=== PATIENT | male | born 1970 | race Caucasian/White ===

== ENCOUNTER 2016-09-15 22:55 | Emergency (ER) ==
[2016-09-15 23:00] VITALS: TEMP 99.1; BMI 30.6
--- NOTE | 2016-09-15 23:04 | ED.PDOC ---
General ED Provider: Dr. CJ SHORT Chief Complaint: Hypertension Stated Complaint: Patient is a 46 year of male how has a history of Hypertension and off and On chest pain for two years. Today he had elevated blood pressure up to 190s . He took a clonidine which he is supposed to take with blood pressure more than 160 . He was experiencing similar chest pain and some numbness on the right arm. Time Seen by Physician: 23:04 Mode of Arrival: Walk-In Information Source: Patient Nursing and Triage Documentation Reviewed and Agree: Yes Review of Systems - Review Of Systems Constitutional: Reports: No symptoms Eyes: Reports: No symptoms Ears, Nose, Mouth, Throat: Reports: No symptoms Respiratory: Reports: No symptoms Cardiac: Reports: Chest pain GI: Reports: No symptoms : Reports: No symptoms Musculoskeletal: Reports: Neck pain Skin: Reports: No symptoms Neurological: Reports: Anxiety, Numbness (Right arm) Endocrine: Reports: No symptoms Hematologic/Lymphatic: Reports: No symptoms All Other Systems: Reviewed and Negative Past Medical History - Past Medical History Previously Healthy: Yes Endocrine: Reports: None Cardiovascular: Reports: Hypertension Respiratory: Reports: None Hematological: Reports: None Gastrointestinal: Reports: None Genitourinary: Reports: None Neuro/Psych: Reports: None Musculoskeletal: Reports: None Cancer: Reports: None - Surgical History General Surgical History: Reports: None - Family History Family History: Reports: None - Social History Smoking Status: Current every day smoker, Heavy tobacco smoker Hx Substance Use: Yes (smokes marijuana) Alcohol Screening: Occasionally Physical Exam - Physical Exam Appearance: Ill-appearing, Well-nourished Ill-appearing: Mild Eyes: KITTY, EOMI, Conjunctiva clear ENT: Ears normal, Nose normal, Oropharynx normal Neck: Supple Respiratory: Airway patent, Breath sounds clear, Breath sounds equal, Respirations nonlabored Cardiovascular: RRR, Pulses normal, No rub, No murmur GI/: Soft, Nontender, No masses, Bowel sounds normal, No Organomegaly Musculoskeletal: Normal strength, ROM intact, No edema, No calf tenderness Skin: Warm, Dry, Normal color Neurological: Sensation intact, Motor intact, Reflexes intact, Cranial nerves intact, Alert, Oriented Psychiatric: Anxious Interpretation - EKG Interpretation Time of EKG #1: 23:28 Rate: Normal Rhythm: Sinus Ectopy: None Cross[place]: NL ST Segment: Normal Interpretation: Normal EKG Re-Evaluation - Re-Evaluation Time of Re-Evaluation: 00:23 Status: Improved Vital Signs Stable: Yes (125/79) Pain Level: 0 Appearance: NAD Critical Care Note - Critical Care Note Total Time (mins): 0 Course - Course Hematology/Chemistry: 09/15/16 23:35 09/15/16 23:35 Orders, Labs, Meds: Lab Review 09/15/16 23:35 WBC 11.05 H RBC 5.01 Hgb 14.8 Hct 42.9 MCV 85.6 MCH 29.5 MCHC 34.5 RDW Coeff of Bob 13.1 Plt Count 216 Immature Gran % (Auto) 0.4 Neut % (Auto) 64.7 Lymph % (Auto) 28.2 [place] % (Auto) 6.2 Eos % (Auto) 0.0 Baso % (Auto) 0.5 Immature Gran # (Auto) 0.0 Neut # 7.2 H Lymph # 3.1 [place] # 0.7 Eos # 0.0 Baso # 0.1 Sodium 140 Potassium 3.6 Chloride 106 Carbon Dioxide 26 Anion Gap 11.6 BUN 16 Creatinine 1.18 H Estimated GFR (MDRD) 67.00 BUN/Creatinine Ratio 13.55 Glucose 98 Calcium 9.4 Total Bilirubin 0.30 AST 23 ALT 35 Alkaline Phosphatase 66 Troponin I < 0.0100 Total Protein 6.8 Albumin 4.1 Globulin 2.7 Albumin/Globulin Ratio 1.52 Orders Category Date Time Status EKG-(ED ONLY) Stat CARDIO 09/15/16 23:28 Completed CBC W/ AUTO DIFF Stat LAB 09/15/16 23:35 Completed COMPREHENSIVE METABOLIC PANEL Stat LAB 09/15/16 23:35 Completed TROPONIN I Stat LAB 09/15/16 23:35 Completed Vital Signs: Temp Pulse Resp BP Pulse Ox 09/15/16 22:56 99.1 F 78 16 169/91 H 98 Departure - Departure Time of Disposition: 00:24 Disposition: HOME SELF-CARE Discharge Problem: Non-cardiac chest pain HTN (hypertension) Qualifiers: Hypertension type: essential hypertension Qualifier Code: (I10) Essential ( primary) hypertension Instructions: Hypertension (ED) Condition: Good Pt referred to PMD for follow-up: Yes Additional Instructions: Continue home medications Follow up with PCP in 3 -5 days Allergies/Adverse Reactions: Allergies No Known Allergies Allergy (Verified 09/15/16 23:01) Home Medications: Ambulatory Orders Nebivolol HCl [Bystolic] 10 mg PO DAILY 09/28/15 Esomeprazole Magnesium [Nexium] 40 mg PO DAILY 01/31/16 Rosuvastatin Calcium [Crestor] 10 mg PO BEDTIME 01/31/16 Hydrocodone Bit/Acetaminophen [[place] 7.5-325] 1 tab PO BID PRN 03/12/16 RX: Clonidine HCl 0.1 mg PO Q4H PRN 09/15/16 Disposition Discussed With: Patient, Family
[2016-09-15 23:42] LABS: BASOPHILS # (AUTO) 0.1 K/uL (0-0.2); BASOPHILS % (AUTO) 0.5 % (0.0-3.0); HEMATOCRIT 42.9 % (42.0-52.0); HEMOGLOBIN 14.8 g/dl (14.0-18.0); IMMATURE GRANULOCYTE % (AUTO) 0.4 % (0.0-5.0); LYMPHOCYTES # (AUTO) 3.1 K/uL (0.60-3.4); LYMPHOCYTES % (AUTO) 28.2 (10.0-50.0); MEAN CORPUSCULAR HEMOGLOBIN 29.5 pg (27.0-31.0); MEAN CORPUSCULAR HGB CONC 34.5 (31.8-35.4); MEAN CORPUSCULAR VOLUME 85.6 fl (80.0-94.0); MONOCYTES # (AUTO) 0.7 K/uL (0.4-2.0); MONOCYTES % (AUTO) 6.2 (0-10); NEUTROPHILS # (AUTO) 7.2 K/ul (2.0-6.9); NEUTROPHILS % (AUTO) 64.7; PLATELET COUNT 216 10^3/uL (140-440); RED BLOOD COUNT 5.01 10^6/ul (4.70-6.10); WHITE BLOOD COUNT 11.05 K/ul (4.2-10.2)
[2016-09-16 00:04] LABS: ALANINE AMINOTRANSFERASE 35 U/L (12-78); ALBUMIN 4.1 g/dL (3.4-5.0); ALBUMIN/GLOBULIN RATIO 1.52; ALKALINE PHOSPHATASE 66 U/L (50-136); ANION GAP 11.6; ASPARTATE AMINO TRANSFERASE 23 U/L (15-37); BLOOD UREA NITROGEN 16 mg/dL (7-18); BUN/CREATININE RATIO 13.55; CALCIUM 9.4 mg/dL (8.2-10.2); CARBON DIOXIDE 26 mmol/L (21-32); CHLORIDE 106 mmol/L (98-107); CREATININE 1.18 mg/dL (0.60-1.10); GLUCOSE 98 mg/dL (70-100); POTASSIUM 3.6 mmol/L (3.5-5.1); SODIUM 140 mmol/L (136-145); TOTAL PROTEIN 6.8 g/dL (6.4-8.2)
[2016-09-16 00:22] VITALS: BP 125/79
== END 2016-09-16 00:29 | disposition home or self-care (01) ==
LOC: ED 22:55
DX: R07.9 Chest pain, unspecified (principal); I10 Essential (primary) hypertension; R20.0 Anesthesia of skin; F17.210 Nicotine dependence, cigarettes, uncomplicated; Z79.899 Other long term (current) drug therapy
CPT/HCPCS: 36415; 80053; 84484; 85025; 93005; 93010; 99283

== ENCOUNTER 2017-06-24 18:38 | Emergency (ER) ==
[2017-06-24 18:49] VITALS: BP 173/99; TEMP 99.2; BMI 30.8
[2017-06-24] MEDS ORDERED: GI COCKTAIL PO STA (19:09)
[2017-06-24] MEDS ORDERED: SODIUM CHLORIDE 1,000 ML IV STA (19:09)
[2017-06-24] MEDS ORDERED: NITROSTAT SL STA (19:09)
--- NOTE | 2017-06-24 19:13 | ED.PDOC ---
General ED Provider: Dr. CJ SHORT Chief Complaint: Chest Pain Stated Complaint: Patient is a 47 year old male who comes to the Er with one day history of cheat pain with left arm numbness. Took Aspirin 325 mg today. States he has had similar symtoms in the past with negative work up. He states that his blood pressure was high and took one of his Clonidine tablet. Time Seen by Physician: 18:50 Mode of Arrival: Walk-In Information Source: Patient Exam Limitations: No limitations Nursing and Triage Documentation Reviewed and Agree: Yes Reviewed sepsis parameters & appropriate labs ordered?: No System Inflammatory Response Syndrome: Not Applicable Sepsis Protocol: For patient's 13 years and over: Temp is 96.8 and below OR 101 and greater Pulse >90 BPM Resp >20/minute Acutely Altered Mental Status Are patient's symptoms suggestive of a new infection, such as: -Pneumonia -Skin, Soft Tissue -Endocarditis -UTI -Bone, Joint Infection -Implantable Device -Acute Abdominal Infection -Wound Infection -Meningitis -Blood Stream Catheter Infection -Unknown System Inflammatory Response Syndrome: Not Applicable Cardiovascular Complaint Exam - Chest Pain Complaint/Exam Onset: Sudden Duration: 2 days Symptoms Are: Still present Timing: Constant Length of Chest Pain Episodes: 2 days Initial Severity: Mild Current Severity: Moderate Location: Reports: Midsternal Pain Radiates: Reports: Left arm Character: Reports: Heaviness, Pressure Aggravating: Reports: None Alleviating: Reports: Nitro, Oxygen Associated Signs and Symptoms: Reports: Diaphoresis, Short of air Related History: Reports: Similar episode Related Surgical History: Reports: None Pulmonary Embolism Risk Factors: Reports: None Prior Care for this Complaint: Yes Recent Stress Test: No (but in the last two years ) Recent Echo/LV Function: No JVD Present: No Subcutaneous Emphysema Present: No Diminshed Breath Sounds: No Reproducible Chest Wall Pain: No Bilateral Pulses Present: No Unequal Pulses Noted: No If Risk Factors for AMI/ACS Consider: EKG, Cardiac Enzymes, Oxygen, Aspirin ( took at home ) Differential Diagnoses: Acute AR, ACS, Stable Angina Quality Indicators For Acute AR or Cardiac Chest Pain: EKG in 10min. Patient Advised to Stop Smoking: Yes Review of Systems - Review Of Systems Constitutional: Reports: Diaphoresis Eyes: Reports: No symptoms Ears, Nose, Mouth, Throat: Reports: No symptoms Respiratory: Reports: Short of air Cardiac: Reports: Chest pain GI: Reports: No symptoms : Reports: No symptoms Musculoskeletal: Reports: No symptoms Skin: Reports: No symptoms Neurological: Reports: Anxiety Endocrine: Reports: No symptoms Hematologic/Lymphatic: Reports: No symptoms All Other Systems: Reviewed and Negative Past Medical History - Past Medical History Previously Healthy: Yes Endocrine: Reports: None Cardiovascular: Reports: Hypertension Respiratory: Reports: None Hematological: Reports: None Gastrointestinal: Reports: None Genitourinary: Reports: None Neuro/Psych: Reports: None Musculoskeletal: Reports: None Cancer: Reports: None - Surgical History General Surgical History: Reports: None - Family History Family History: Reports: None - Social History Smoking Status: Current every day smoker, Heavy tobacco smoker Hx Substance Use: Yes (smokes marijuana) Alcohol Screening: Occasionally - Immunizations Tetanus Shot up to Date: Yes Physical Exam - Physical Exam Appearance: Ill-appearing Pain Distress: Severe Eyes: KITTY, EOMI, Conjunctiva clear Neck: Supple Respiratory: Airway patent, Breath sounds clear, Breath sounds equal, Respirations nonlabored Cardiovascular: RRR, Pulses normal, No rub, No murmur Musculoskeletal: Normal strength, ROM intact, No edema, No calf tenderness Skin: Warm, Dry, Normal color Neurological: Sensation intact, Alert, Oriented Psychiatric: Anxious Interpretation - Radiology Interpretation Radiology Interpretation By: Radiologist Radiology Results: Negative - Butter Melter Rate: Normal Rhythm: Sinus Ectopy: None - EKG Interpretation Rate: Normal Rhythm: Sinus Ectopy: None [place]: NL Re-Evaluation - Re-Evaluation Time of Re-Evaluation: 21:01 Status: Improved Pain Level: gone after Nitroglyceine Physician Notification - Case Discussed Physician Notified: Dr CABRERA Time of Notification: 20:21 (Accepted for transfer ) Critical Care Note - Critical Care Note Total Time (mins): 30 Course - Course Hematology/Chemistry: 06/24/17 18:43 06/24/17 18:43 Orders, Labs, Meds: Lab Review 06/24/17 06/24/17 06/24/17 18:43 18:43 18:43 WBC 10.04 RBC 4.83 Hgb 14.6 Hct 42.1 MCV 87.2 MCH 30.2 MCHC 34.7 RDW Coeff of Bob 12.6 Plt Count 197 Immature Gran % (Auto) 0.4 Neut % (Auto) 58.1 Lymph % (Auto) 35.5 [place] % (Auto) 5.6 Eos % (Auto) 0.0 Baso % (Auto) 0.4 Immature Gran # (Auto) 0.0 Neut # 5.8 Lymph # 3.6 H [place] # 0.6 Eos # 0.0 Baso # 0.0 D-Dimer (Manual) 191.13 Sodium 143 Potassium 3.1 L Chloride 110 H Carbon Dioxide 22 Anion Gap 14.1 BUN 13 Creatinine 0.89 Estimated GFR (MDRD) 92.00 BUN/Creatinine Ratio 14.60 Glucose 115 H Calcium 8.5 Total Bilirubin 0.3 AST 20 ALT 31 Alkaline Phosphatase 64 Total Creatine Kinase 157 CK-MB (CK-2) 1.1 CK-MB (CK-2) % 0.96413 Troponin I < 0.0100 Total Protein 6.6 Albumin 3.8 Globulin 2.8 Albumin/Globulin Ratio 1.36 Orders Category Date Time Status EKG-(ED ONLY) Stat CARDIO 06/24/17 19:09 Completed EKG-(ED ONLY) Stat CARDIO 06/24/17 19:34 Completed ED IV/MEDIPORT/POWERPORT .ONCE EMERGENCY 06/24/17 19:09 Active CBC W/ AUTO DIFF Stat LAB 06/24/17 18:43 Completed COMPREHENSIVE METABOLIC PANEL Stat LAB 06/24/17 18:43 Completed CREATINE KINASE Stat LAB 06/24/17 18:43 Completed D-DIMER Stat LAB 06/24/17 18:43 Completed TROPONIN I Stat LAB 06/24/17 18:43 Completed 0.9 % Sodium Chloride [Saline Flush] MEDS 06/24/17 19:09 Ordered 1 syr IVF PRN PRN Mag-Al Plus//Lidocaine [Gi Cocktail] MEDS 06/24/17 19:09 Discontinued 30 ml PO ONCE STA Nitroglycerin [Nitrostat] MEDS 06/24/17 19:09 Discontinued 0.4 mg SL ONCE STA Sodium Chloride 0.9% [Sodium Chloride] 1,000 ml MEDS 06/24/17 19:09 Active IV 125 mls/hr CHEST, 1V AP ONLY Stat RADS 06/24/17 19:09 Taken Medications Generic Name Dose Route Start Last Admin Trade Name Freq PRN Reason Stop Dose Admin Sodium Chloride 1,000 mls @ 125 mls/hr 06/24/17 19:09 06/24/17 19:40 Sodium Chloride IV 06/25/17 03:08 125 mls/hr .Q8H STA Administration Sodium Chloride 1 syr 06/24/17 19:09 06/24/17 19:42 Saline Flush IVF 1 syr PRN PRN Administration To flush IV Discontinued Medications Generic Name Dose Route Start Last Admin Trade Name Freq PRN Reason Stop Dose Admin Al Hydroxide/Mg Hydroxide 30 ml 06/24/17 19:09 06/24/17 19:41 Gi Cocktail PO 06/24/17 19:10 30 ml ONCE STA Administration Nitroglycerin 0.4 mg 06/24/17 19:09 06/24/17 19:42 Nitrostat SL 06/24/17 19:10 0.4 mg ONCE STA Administration Vital Signs: Temp Pulse Resp BP Pulse Ox 06/24/17 18:39 99.2 F 74 16 173/99 H 98 EMILY Risk Score Age >/= 65: No >/= 3 CAD Risk Factors: Yes Known CAD (Stenosis >/= 50%): No ASA Use in Past 7 Days: Yes Severe Angina (>/= 2 episodes in 24 hours): Yes EKG ST Changes >/= 0.5mm: No Postive Cardiac Marker: No EMILY Total Score: 3 EMILY Risk Score: Risk Score Odds of by 30D 0 0.1 (0.1-0.2) 1 0.3 (0.2-0.3) 2 0.4 (0.3-0.5) 3 0.7 (0.6-0.9) 4 1.2 (1.0-1.5) 5 2.2 (1.9-2.6) 6 3.0 (2.5-3.6) 7 4.8 (3.8-6.1) Departure - Departure Time of Disposition: 21:02 Disposition: [facility] Discharge Problem: Chest pain, Angina at rest Condition: Stable Pt referred to PMD for follow-up: No IPMP verified?: No Allergies/Adverse Reactions: Allergies No Known Allergies Allergy (Verified 06/24/17 18:50) Home Medications: Ambulatory Orders Nebivolol HCl [Bystolic] 10 mg PO DAILY 09/28/15 Esomeprazole Magnesium [Nexium] 40 mg PO DAILY 01/31/16 Rosuvastatin Calcium [Crestor] 10 mg PO BEDTIME 01/31/16 Hydrocodone Bit/Acetaminophen [[place] 7.5-325] 1 tab PO BID PRN 03/12/16 Clonidine HCl 0.1 mg PO Q4H PRN 09/15/16
--- NOTE | 2017-06-25 06:38 | DI ---
EXAM: Single view chest COMPARISON: Chest Xray from 03/12/2016 HISTORY: Chest pain FINDINGS: Lungs are clear with no lobar consolidation, failure, large effusion or significant atelec tasis. There is trace linear atelectasis in the left base. Cardiac and mediastinal silhouettes show n o acute abnormality. No acute soft tissue or osseous abnormalities. IMPRESSION: Trace linear atelectasis left base otherwise negative.
== END 2017-06-24 21:20 | disposition short-term general hospital (02) ==
LOC: ED 18:38
DX: I20.9 Angina pectoris, unspecified (principal); I10 Essential (primary) hypertension; R06.02 Shortness of breath; R61 Generalized hyperhidrosis; F17.210 Nicotine dependence, cigarettes, uncomplicated; Z79.899 Other long term (current) drug therapy
CPT/HCPCS: 36415; 80053; 82550; 82553; 84484; 85025; 85379; 93005; 93010; 96360; 96361; 99285